=== PATIENT | female | born 1935 | race Caucasian/White ===

== ENCOUNTER 2017-10-15 11:53 | Inpatient (IN) ==
[2017-10-16 06:55] LABS: Baso % (Auto) 0.2 % (0.0-2.0); Eos # (Auto) 0.1 th/mm3 (0.0-0.4); Eos % (Auto) 0.9 % (0.0-4.0); Hematocrit 30.1 % (35.0-46.0); Lymph # (Auto) 0.4 th/mm3 (1.0-4.8); Lymph % (Auto) 3.6 % (9.0-44.0); Mean Corpuscular HGB Conc 33.1 % (32.0-36.0); Mean Corpuscular Hemoglobin 29.4 pg (27.0-34.0); Mean Platelet Volume 7.2 fL (7.0-11.0); Mono # (Auto) 0.8 th/mm3 (0.0-0.9); Mono % (Auto) 8.2 % (0.0-8.0); Neut # (Auto) 8.8 th/mm3 (1.8-7.7); Neut % (Auto) 87.1 % (16.0-70.0); Platelet Count 142 th/mm3 (150-450); Red Blood Count 3.38 mil/mm3 (4.00-5.30); White Blood Count 10.1 th/mm3 (4.0-11.0)
[2017-10-16 07:03] LABS: Chloride 108 meq/L (98-107); Potassium 3.8 meq/L (3.5-5.1); Sodium 137 meq/L (136-145)
[2017-10-16 07:21] LABS: Albumin 2.5 g/dL (3.4-5.0); Anion Gap 11 meq/L (5-15); Blood Urea Nitrogen 48 mg/dL (7-18); Calcium 8.9 mg/dL (8.5-10.1); Carbon Dioxide 18.5 meq/L (21.0-32.0); Glucose,Random 114 mg/dL (74-106)
[2017-10-16 07:24] LABS: Alanine Aminotransferase 311 U/L (10-53); Aspartate Aminotransferase 201 U/L (15-37); Glomerular Filtration Rate 36 mL/min (>89)
[2017-10-16 07:25] LABS: Total Protein 6.1 g/dL (6.4-8.2)
[2017-10-16 07:27] LABS: Alkaline Phosphatase 397 U/L (45-117)
[2017-10-16] MEDS ORDERED: Sod Chloride 0.9% Inj 1,000 ML IV.SIG ONE (10:12)
[2017-10-16] MEDS ORDERED: Atenolol 100 MG Tablet PO SCH (10:15)
--- NOTE | 2017-10-16 10:48 | P.HPIM ---
History of Present Illness Primary Care Physician: UNKNOWN Chief Complaint: Abdominal pain History of Present Illness: Patient is an 82-year-old female with a history of renal cell carcinoma status post left nephrectomy and adrenalectomy who comes in complaining of 5 days of intermittent abdominal pain with 2 days of worsening of the pain, anorexia and nausea. She notes no fevers or chills no rahul vomiting. She has come to the emergency room in [place] for further evaluation is noted to have elevated LFTs and gallstones without inflammation on her CT abdomen pelvis as well as her ultrasound. Patient was admitted for further evaluation hydration. Her pain has resolved with bowel rest, and it was severe but now it is minimal. He is localized only to the mid epigastrium and is nonradiating. - Diagnosis (1) Abdominal pain (2) Gall stones (3) Hepatitis Review of Systems All other systems reviewed negative except as stated in [facility]PI [facility] - History History Provided By: Patient, Family Member - Medical History Medical History: Medical History (Last Reviewed 10/16/17 @ 10:44 by Geraldine Lyman MD) High cholesterol History of nephrectomy, unilateral Hx of malignant neoplasm of kidney Hx of unilateral nephrectomy Hypertension Hypothyroid - Surgical History Surgical History: Surgical History (Last Updated 10/16/17 @ 10:45 by Geraldine Lyman MD) H/O total adrenalectomy History of nephrectomy Hx of tonsillectomy - Family History Family History: Family History (Last Updated 10/16/17 @ 10:44 by Geraldine Lyman MD) Other HTN (hypertension) - Tobacco History Second Hand Smoke Exposure: No Smoking Status: Never smoker - Alcohol History How Often Do You Have a Drink Containing Alcohol: Never - Substance Use History Substance History: No History of Abuse - Travel History Recent Travel in the [place] Within the Last 8 Weeks: No Recent Travel Out of the Country Within the Last 8 Weeks: No Medications and Allergies Active Medications: Active Medications Atenolol (Tenormin) 100 mg PO DAILY NIKO Lactated Ringer's (Lr 1000 Ml Inj) 1,000 mls @ 125 mls/hr IV.CONT .Q8H NIKO Levothyroxine Sodium (Synthroid) 25 mcg PO DAILY@0600 NIKO Ondansetron HCl (Zofran Inj) 4 mg IV.PUSH Q6H PRN PRN Reason: NAUSEA OR VOMITING Allergies Allergy/AdvReac Type Severity Reaction Status Date / Time NSAIDS (Non-Steroidal AdvReac Severe Abdominal Verified 10/15/17 12:17 Anti-Inflamma Pain Home Medications Medication Instructions Recorded Confirmed Type atenolol 100 mg PO DAILY 10/15/17 10/16/17 History levothyroxine 25 mcg PO DAILY 10/15/17 10/16/17 History simvastatin [Zocor] 40 mg PO QPM 10/15/17 10/16/17 History Exam Vital signs: Vital Signs 10/16/17 00:00 10/16/17 08:00 Temperature 99.6 F 100.2 F H Pulse Rate 74 92 H Respiratory Rate 16 17 Blood Pressure 126/58 L 134/65 Pulse Oximetry 97 94 L Intake & Output 10/15/17 10/16/17 10/16/17 18:59 06:59 18:59 Weight 81.7 kg Other: Date of Last Bowel Movement 10/15/17 Weight On Admission 81.7 kg Narrative: GENERAL: Well-nourished, well-developed patient. SKIN: Warm and dry. HEAD: Normocephalic. EYES: No scleral icterus. No injection or drainage. NECK: Supple, trachea midline. No JVD or lymphadenopathy. CARDIOVASCULAR: Regular rate and rhythm without murmurs, gallops, or rubs. RESPIRATORY: Breath sounds equal bilaterally. No accessory muscle use. GASTROINTESTINAL: Abdomen soft, minimally tender, nondistended. MUSCULOSKELETAL: No cyanosis, or edema. BACK: Nontender without obvious deformity. No CVA tenderness. NEUROLOGICAL: Awake and alert. Cranial nerves II through XII intact. Motor and sensory grossly within normal limits. Five out of 5 muscle strength in all muscle groups. Normal speech. Results - Labs CBC & Chem 7: 10/16/17 06:25 10/16/17 06:25 Labs: Short CBC 10/16/17 Range/Units 06:25 WBC 10.1 (4.0-11.0) th/mm3 Hgb 10.0 L (11.6-15.3) gm/dL Hct 30.1 L (35.0-46.0) % Plt Count 142 L (150-450) th/mm3 BMP 10/16/17 06:25 Sodium 137 Potassium 3.8 Chloride 108 H Carbon Dioxide 18.5 L BUN 48 H Creatinine 1.40 H Calcium 8.9 Liver Function 10/16/17 Range/Units 06:25 Total Bilirubin 2.3 H (0.2-1.0) mg/dL AST 201 H (15-37) U/L ALT 311 H (10-53) U/L Alkaline Phosphatase 397 H (45-117) U/L Albumin 2.5 L (3.4-5.0) g/dL - Imaging CT abdomen pelvis and ultrasound consistent with gallstones without acute cholecystitis Caprini VTE Risk Assessment Caprini VTE Risk Assessment: Moderate/High Risk (score >= 2) Caprini Risk Assessment Model: Point Value = 1 Point Value = 2 Point Value = 3 Point Value = 5 Age 41-60 Minor surgery BMI > 25 kg/m2 Swollen legs Varicose veins or History of unexplained or recurrent spontaneous Oral contraceptives or hormone replacement Sepsis (< 1 month) Serious lung disease, including pneumonia (< 1 month) Abnormal pulmonary function Acute myocardial infarction Congestive heart failure (< 1 month) History of inflammatory bowel disease Medical patient at bed rest Age 61-74 Arthroscopic surgery Major open surgery (> 45 min) Laparoscopic surgery (> 45 min) Malignancy Confined to bed (> 72 hours) Immobilizing plaster cast Central venous access Age >= 75 History of VTE Family history of VTE Factor V Leiden Prothrombin [id number] Lupus anticoagulant Anticardiolipin antibodies Elevated serum homocysteine Heparin-induced thrombocytopenia Other congenital or acquired thrombophilia Stroke (< 1 month) Elective arthroplasty Hip, pelvis, or leg fracture Acute spinal cord injury (< 1 month) Prophylaxis Regimen: Total Risk Factor Score Risk Level Prophylaxis Regimen 0-1 Low Early ambulation 2 Moderate Order ONE of the following: *Sequential Compression Device (SCD) *Heparin 5000 units SQ BID 3-4 Higher Order ONE of the following medications: *Heparin 5000 units SQ TID *Enoxaparin/Lovenox 40 mg SQ daily (WT < 150 kg, CrCl > 30 mL/min) *Enoxaparin/Lovenox 30 mg SQ daily (WT < 150 kg, CrCl > 10-29 mL/min) *Enoxaparin/Lovenox 30 mg SQ BID (WT < 150 kg, CrCl > 30 mL/min) AND/OR *Sequential Compression Device (SCD) 5 or more Highest Order ONE of the following medications: *Heparin 5000 units SQ TID (Preferred with Epidurals) *Enoxaparin/Lovenox 40 mg SQ daily (WT < 150 kg, CrCl > 30 mL/min) *Enoxaparin/Lovenox 30 mg SQ daily (WT < 150 kg, CrCl > 10-29 mL/min) *Enoxaparin/Lovenox 30 mg SQ BID (WT < 150 kg, CrCl > 30 mL/min) AND *Sequential Compression Device (SCD) Assessment and Plan - Assessment (1) Abdominal pain Code(s): R10.9 - Unspecified abdominal pain Status: Acute Plan: Likely due to gallstones Follow-up clinically N.p.o. for now (2) Gall stones Code(s): K80.20 - Calculus of gallbladder without cholecystitis without obstruction Status: Acute Plan: Patient with history of abdominal pain since her 20s. Gallstones noted on ultrasound and CT but without inflammatory changes Continue IV hydration and dietary changes Patient will need cholecystectomy at some point (3) Hepatitis Code(s): K75.9 - Inflammatory liver disease, unspecified Status: Acute Plan: May be due to gallstones, follow-up MRCP to rule out ductal stone Hepatitis panel pending Continue IV hydration - Plan Code Status: Full code Discharge Planning: Patient, ER MD, family H&P: Quality - VTE Deep Vein Thrombosis/Pulmonary Embolism Present on Admission: No
[2017-10-16 15:34] LABS: Hepatitis A IgM Antibody Nonreactive (Nonreactive); Hepatitits B Surface Antigen Nonreactive (Nonreactive)
--- NOTE | 2017-10-16 19:12 | P.CONGI ---
History of Present Illness Chief complaint: Acute hepatic insufficiency History of Present Illness: Came to see this patient consulted for abnormal liver panel possibly related to CBD stones. Patient is down in the radiology getting MRCP ordered by Dr. Lyman. Patient not interviewed or examined. Spoke to the nurse taking care of the patient. She reported patient had mild fever in the morning. She was however afebrile this afternoon.. Available medical records evaluated. There is history of abdominal pain ongoing for the last 5 days. She describes this as moderately severe pain located in the epigastrium and right upper quadrant without any specific radiation. There is no history of jaundice pruritus chills or rigor Review of Systems Gastrointestinal: Reports abdominal pain PMFSH - History History Provided By: Patient, Family Member - Medical History Medical History: Medical History (Last Reviewed 10/16/17 @ 10:44 by Geraldine Lyman MD) High cholesterol History of nephrectomy, unilateral Hx of malignant neoplasm of kidney Hx of unilateral nephrectomy Hypertension Hypothyroid - Surgical History Surgical History: Surgical History (Last Updated 10/16/17 @ 10:45 by Geraldine Lyman MD) H/O total adrenalectomy History of nephrectomy Hx of tonsillectomy - Family History Family History: Family History (Last Updated 10/16/17 @ 10:44 by Geraldine Lyman MD) Other HTN (hypertension) - Tobacco History Second Hand Smoke Exposure: No Smoking Status: Never smoker - Alcohol History How Often Do You Have a Drink Containing Alcohol: Never - Substance Use History Substance History: No History of Abuse - Travel History Recent Travel in the [place] Within the Last 8 Weeks: No Recent Travel Out of the Country Within the Last 8 Weeks: No Medications and Allergies Active Medications: Active Medications Atenolol (Tenormin) 100 mg PO DAILY [facility] Lactated Ringer's (Lr 1000 Ml Inj) 1,000 mls @ 125 mls/hr IV.CONT .Q8H [facility] Last Admin: 10/16/17 18:35 Dose: Not Given Levothyroxine Sodium (Synthroid) 25 mcg PO DAILY@0600 [facility] Last Admin: 10/16/17 12:04 Dose: 25 mcg Ondansetron HCl (Zofran Inj) 4 mg IV.PUSH Q6H PRN PRN Reason: NAUSEA OR VOMITING Allergies Allergy/AdvReac Type Severity Reaction Status Date / Time NSAIDS (Non-Steroidal AdvReac Severe Abdominal Verified 10/15/17 12:17 Anti-Inflamma Pain Home Medications Medication Instructions Recorded Confirmed Type atenolol 100 mg PO DAILY 10/15/17 10/16/17 History levothyroxine 25 mcg PO DAILY 10/15/17 10/16/17 History simvastatin [Zocor] 40 mg PO QPM 10/15/17 10/16/17 History Exam Vital signs: Vital Signs 10/16/17 00:00 10/16/17 08:00 10/16/17 12:00 Temperature 99.6 F 100.2 F H 96.8 F L Pulse Rate 74 92 H 73 Respiratory Rate 16 17 17 Blood Pressure 126/58 L 134/65 134/77 Pulse Oximetry 97 94 L 97 10/16/17 16:00 Temperature 98.6 F Pulse Rate 67 Respiratory Rate 16 Blood Pressure 117/68 Pulse Oximetry 98 Intake & Output 10/16/17 10/16/17 10/17/17 06:59 18:59 06:59 Intake Total 1000 / 1000 Balance 1000 / 1000 Weight 81.7 kg Intake: IV 1000 / 1000 NS Inj 1,000 ML @ Wide Open IV. 1000 / 1000 SIG BOLUS ONE Rx#:[id number] Oral 0 / 0 Other: # Voids 3 Date of Last Bowel Movement 10/15/17 # Bowel Movements 1 Weight On Admission 81.7 kg Narrative: Patient not examined as she was downstairs in the radiology getting MRCP Results - Labs CBC & Chem 7: 10/16/17 06:25 10/16/17 06:25 Labs: Laboratory Results - last 24 hr 10/16/17 10/16/17 10/16/17 06:25 06:25 11:10 CBC w Diff Auto diff final WBC 10.1 RBC 3.38 L Hgb 10.0 L Hct 30.1 L MCV 89.0 MCH 29.4 MCHC 33.1 RDW 13.0 Plt Count 142 L MPV 7.2 Neut % (Auto) 87.1 H Lymph % (Auto) 3.6 L [place] % (Auto) 8.2 H Eos % (Auto) 0.9 Baso % (Auto) 0.2 Neut # (Auto) 8.8 H Lymph # (Auto) 0.4 L [place] # (Auto) 0.8 Eos # (Auto) 0.1 Baso # (Auto) 0.0 WBC Differential . Differential Comment . Sodium 137 Potassium 3.8 Chloride 108 H Carbon Dioxide 18.5 L Anion Gap 11 BUN 48 H Creatinine 1.40 H Estimated GFR 36 L Random Glucose 114 H Calcium 8.9 Total Bilirubin 2.3 H AST 201 H ALT 311 H Alkaline Phosphatase 397 H Total Protein 6.1 L D Albumin 2.5 L Hepatitis A IgM Ab Nonreactive Hep Bs Antigen Nonreactive Hep B Core IgM Ab Nonreactive Hep C IgG Ab Nonreactive - Imaging CT scan and ultrasound showed presence of gallstones without any evidence of acute cholecystitis. Assessment and Plan (1) Abnormal liver function Status: Acute Code(s): K76.89 - Other specified diseases of liver (2) Abnormal liver CT Status: Acute Code(s): R93.2 - Abnormal findings on diagnostic imaging of liver and biliary tract (3) Abnormal liver enzymes Status: Acute Code(s): R74.8 - Abnormal levels of other serum enzymes (4) Abdominal pain Status: Acute Code(s): R10.9 - Unspecified abdominal pain (5) Gall stones Status: Acute Code(s): K80.20 - Calculus of gallbladder without cholecystitis without obstruction (6) Choledocholithiasis Status: Acute Code(s): K80.50 - Calculus of bile duct without cholangitis or cholecystitis without obstruction - Plan 1. Agree with MRCP to evaluate the possibility of CBD stone causing abnormal liver labs. 2. If MRCP shows choledocholithiasis, she would be schedule for ERCP and [facility] 3. Will follow up on the MRCP results tomorrow 4. Repeat labs in the a.m., CBC CMP PT/INR
--- NOTE | 2017-10-16 20:34 | MR ---
EXAM DATE: 10/16/2017 8:10 PM EDT AGE/SEX: 82 years / Female INDICATIONS: . Elevated LFTs. CLINICAL DATA: This is the patient's subsequent encounter. Patient reports that signs and symptoms h ave been present for 2 days and indicates a pain score of 0/10. MEDICAL/SURGICAL HISTORY: . cancer of the left kidney . removal of the left kidney and adrenal gland COMPARISON: [facility], CT ABDOMEN & PELVIS W/O CONTRAST, 10/15/2017. . TECHNIQUE: Multiplanar, multisequence images of the abdomen were obtained without contrast including dedicated cholangiographic images. FINDINGS: Postoperative left nephrectomy. There are 2 calcified gallstones present in the gallbladder. Common bile duct measures up to about 9 mm in diameter and there is choledocholithiasis with 2 gallst ones in the distal duct measuring about 8 mm in diameter and an additional 5 mm gallstone distally. T he pancreatic duct has normal caliber. There are numerous circumscribed renal cysts which are incompletely evaluated. No free fluid. No sign ificant abnormality identified spleen. No bowel dilatation. CONCLUSION: 1. Positive for choledocholithiasis with at least 3 gallstones in the distal common bile duct measur ing between 5 and 8 mm in diameter. Common bile duct measures up to about 9 mm in diameter. 2. Calcified gallstones in the gallbladder. Electronically signed by: Reginald Montgomery MD 10/16/2017 8:32 PM EDT
[2017-10-17 06:33] LABS: Hematocrit 28.5 % (35.0-46.0); Hemoglobin 9.4 gm/dL (11.6-15.3); Mean Corpuscular Hemoglobin 29.5 pg (27.0-34.0); Mean Corpuscular Volume 89.4 fL (80.0-100.0); Mean Platelet Volume 7.7 fL (7.0-11.0); Platelet Count 141 th/mm3 (150-450); Red Blood Count 3.18 mil/mm3 (4.00-5.30); Red Cell Distribution Width 13.3 % (11.6-17.2); White Blood Count 9.8 th/mm3 (4.0-11.0)
[2017-10-17 06:40] LABS: Chloride 111 meq/L (98-107); Sodium 140 meq/L (136-145)
[2017-10-17 06:47] LABS: Calcium 8.8 mg/dL (8.5-10.1); INR 1.2 Ratio; Prothrombin Time 11.8 sec (9.8-11.6)
[2017-10-17 06:48] LABS: Albumin 2.2 g/dL (3.4-5.0); Anion Gap 9 meq/L (5-15); Blood Urea Nitrogen 52 mg/dL (7-18); Glucose,Random 97 mg/dL (74-106)
[2017-10-17 06:51] LABS: Alanine Aminotransferase 185 U/L (10-53); Aspartate Aminotransferase 59 U/L (15-37); Glomerular Filtration Rate 39 mL/min (>89)
[2017-10-17 06:52] LABS: Total Protein 5.7 g/dL (6.4-8.2)
[2017-10-17 06:54] LABS: Alkaline Phosphatase 304 U/L (45-117)
--- NOTE | 2017-10-17 07:09 | P.PN ---
Subjective Interval history: 82-year-old female who is seen in follow-up today because of elevated liver enzymes, choledocholithiasis. Patient is resting comfortably in bed. Presently she is without any pain or discomfort. Discussed with her that the treatment plan for ERCP. She is in agreement at this time. Vital signs are stable, patient remains afebrile Physical Exam Vital signs: Vital Signs 10/16/17 08:00 10/16/17 12:00 10/16/17 16:00 Temperature 100.2 F H 96.8 F L 98.6 F Pulse Rate 92 H 73 67 Respiratory Rate 17 17 16 Blood Pressure 134/65 134/77 117/68 Pulse Oximetry 94 L 97 98 10/16/17 20:00 10/17/17 00:00 Temperature 98.3 F 98.4 F Pulse Rate 72 69 Respiratory Rate 20 20 Blood Pressure 155/80 H 126/62 Pulse Oximetry 100 97 Intake & Output 10/16/17 10/17/17 10/17/17 18:59 06:59 18:59 Intake Total 1000 / 1000 1560 / 1560 Balance 1000 / 1000 1560 / 1560 Weight 82.3 kg Intake: IV 1000 / 1000 1500 / 1500 LR 1000 mL Inj 1,000 ML @ 125 1500 / 1500 mls/hr IV.CONT .Q8H NIKO Rx#: [id number] NS Inj 1,000 ML @ Wide Open IV. 1000 / 1000 SIG BOLUS ONE Rx#:[id number] Oral 0 / 0 60 / 60 Other: # Voids 3 1 Date of Last Bowel Movement 10/15/17 # Bowel Movements 1 Narrative: GENERAL: Well-developed, well-nourished, in no acute distress. alert and orientated HEENT: Head is normocephalic without any lesions or masses noted. Facial features are symmetric. Eyes: Extraocular muscles are intact. Conjunctivae were clear. NECK: Supple without any masses. Trachea midline no deviation. No JVD, CARDIAC: Regular rhythm, regular rate. S1/S2 are heard. 2/6 ejection murmur noted in the mitral region. No gallops or rubs. LUNGS: Clear to auscultation bilaterally. No wheeze, rhonchi or rales. No use of accessory muscles on inspiration or expiration. ABDOMEN: Soft, nontender. Nondistended. Bowel sounds heard in all 4 quadrants. No organomegaly or masses. Negative rebound, negative guarding EXTREMITIES: No edema, pulses are equal bilaterally. No cyanosis or clubbing NEUROLOGY: Mood and affect appear appropriate. Cranial nerves II through XII grossly intact. Moving all extremities, speech is clear Results - Labs CBC & Chem 7: 10/17/17 05:18 10/17/17 05:18 Laboratory Results - last 24 hr 10/16/17 10/16/17 10/17/17 06:25 11:10 05:18 WBC RBC Hgb Hct MCV MCH MCHC RDW Plt Count MPV PT INR Sodium 137 140 Potassium 3.8 4.0 Chloride 108 H 111 H Carbon Dioxide 18.5 L 20.0 L Anion Gap 11 9 BUN 48 H 52 H Creatinine 1.40 H 1.30 H Estimated GFR 36 L 39 L Random Glucose 114 H 97 Calcium 8.9 8.8 Total Bilirubin 2.3 H 0.8 AST 201 H 59 H ALT 311 H 185 H Alkaline Phosphatase 397 H 304 H Total Protein 6.1 L D 5.7 L Albumin 2.5 L 2.2 L Hepatitis A IgM Ab Nonreactive Hep Bs Antigen Nonreactive Hep B Core IgM Ab Nonreactive Hep C IgG Ab Nonreactive 10/17/17 10/17/17 05:18 05:18 WBC 9.8 RBC 3.18 L Hgb 9.4 L Hct 28.5 L MCV 89.4 MCH 29.5 MCHC 33.0 RDW 13.3 Plt Count 141 L MPV 7.7 PT 11.8 H INR 1.2 Sodium Potassium Chloride Carbon Dioxide Anion Gap BUN Creatinine Estimated GFR Random Glucose Calcium Total Bilirubin AST ALT Alkaline Phosphatase Total Protein Albumin Hepatitis A IgM Ab Hep Bs Antigen Hep B Core IgM Ab Hep C IgG Ab - Imaging Impressions Cholangiopancreatography MRI 10/16/17 00:00 CONCLUSION: 1. Positive for choledocholithiasis with at least 3 gallstones in the distal common bile duct measuring between 5 and 8 mm in diameter. Common bile duct measures up to about 9 mm in diameter. 2. Calcified gallstones in the gallbladder. Assessment and Plan - Assessment (1) Abdominal pain Code(s): R10.9 - Unspecified abdominal pain Status: Acute Plan: Likely due to gallstones Follow-up clinically N.p.o. for now (2) Gall stones Code(s): K80.20 - Calculus of gallbladder without cholecystitis without obstruction Status: Acute Plan: Patient with history of abdominal pain since her 20s. Gallstones noted on ultrasound and CT but without inflammatory changes Continue IV hydration and dietary changes Patient will need cholecystectomy at some point (3) Hepatitis Code(s): K75.9 - Inflammatory liver disease, unspecified Status: Acute Plan: May be due to gallstones, follow-up MRCP to rule out ductal stone Hepatitis panel pending Continue IV hydration - Plan 82-year-old female who presented to the hospital with abdominal pain and was found to have elevated liver enzymes, gallbladder distention Choledocholithiasis -MRCP does indicate at least 3 stones obstructing the distal common bile duct -Patient will require ERCP, patient will be transferred to the [facility] for procedure -CT scan did indicate:. The gallbladder is mildly distended, and there are 2 calcified stones in the dependent portion of the gallbladder. -GI following the patient, discussed with Dr. Santana, plans to transfer for ERCP today -Continue IV hydration with lactated Ringer's -Patient will be n.p.o. Elevated liver enzymes -Secondary to above -Viral hepatitis panel was unremarkable -GI following the patient -Continue monitor liver enzymes Hypertension, hyperlipidemia, chronic: -Blood pressure stable -Home medication continued -Statin has been held secondary to elevated liver enzyme Hypothyroidism, chronic: -Continue replacement therapy History of kidney cancer status post nephrectomy -CT scan did indicate2. Multiple right-sided renal masses occluding probable hemorrhagic or proteinaceous cysts, complex cysts and indeterminate possibly solid masses. Contrast-enhanced CT abdomen or MRI abdomen with and without contrast suggested on a nonemergent outpatient basis. -Patient will need follow up with primary medical doctor upon discharge for further evaluation and management DVT prevention -Sequential compression devices
[2017-10-17] MEDS: Atenolol 50 MG Tablet PO SCH (09:20)
--- NOTE | 2017-10-17 11:21 | P.PNGI ---
Subjective Interval history: Pt resting in bed, arrived from [place] about an hour ago. Complaining of some intermittent pain to her LUQ. Denies any nausea and vomiting. <Sharona Rojas - Last Filed: 10/17/17 11:22> Physical Exam Vital signs: Vital Signs 10/16/17 12:00 10/16/17 16:00 10/16/17 20:00 Temperature 96.8 F L 98.6 F 98.3 F Pulse Rate 73 67 72 Respiratory Rate 17 16 20 Blood Pressure 134/77 117/68 155/80 H Pulse Oximetry 97 98 100 10/17/17 00:00 10/17/17 08:34 10/17/17 10:42 Temperature 98.4 F 99.4 F 98.1 F Pulse Rate 69 67 68 Respiratory Rate 20 18 16 Blood Pressure 126/62 150/72 H 155/70 H Pulse Oximetry 97 96 100 Intake & Output 10/16/17 10/17/17 10/17/17 18:59 06:59 18:59 Intake Total 1000 / 1000 1560 / 1560 Balance 1000 / 1000 1560 / 1560 Weight 82.3 kg Intake: IV 1000 / 1000 1500 / 1500 LR 1000 mL Inj 1,000 ML @ 125 1500 / 1500 mls/hr IV.CONT .Q8H NIKO Rx#: [id number] NS Inj 1,000 ML @ Wide Open IV. 1000 / 1000 SIG BOLUS ONE Rx#:[id number] Oral 0 / 0 60 / 60 Other: # Voids 3 1 Date of Last Bowel Movement 10/15/17 10/16/17 # Bowel Movements 1 - Constitutional no acute distress - Routine HEENT Exam Head: Present: normocephalic, atraumatic - Routine Respiratory Exam Absent: accessory muscle use - Routine Abdominal Exam Present: soft, normoactive bowel sounds, tenderness (LuQ) - Routine Skin Exam Present: dry, warm - Routine Neurological Exam Present: alert, oriented X3 <Sharona Rojas - Last Filed: 10/17/17 11:22> Vital signs: Vital Signs 10/16/17 20:00 10/17/17 00:00 10/17/17 08:34 Temperature 98.3 F 98.4 F 99.4 F Pulse Rate 72 69 67 Respiratory Rate 20 20 18 Blood Pressure 155/80 H 126/62 150/72 H Pulse Oximetry 100 97 96 08/02/18 10:42 10/17/17 14:01 10/17/17 16:00 Temperature 98.1 F 97.9 F 98.2 F Pulse Rate 68 64 60 Respiratory Rate 16 16 14 Blood Pressure 155/70 H 137/60 148/67 H Pulse Oximetry 100 99 97 Intake & Output 10/16/17 10/17/17 10/17/17 18:59 06:59 18:59 Intake Total 1000 / 1000 1560 / 1560 900 / 900 Balance 1000 / 1000 1560 / 1560 900 / 900 Weight 82.3 kg 82.3 kg Intake: IV 1000 / 1000 1500 / 1500 500 / 500 LR 1000 mL Inj 1,000 ML @ 125 1500 / 1500 500 / 500 mls/hr IV.CONT .Q8H NIKO Rx#: [id number] NS Inj 1,000 ML @ Wide Open IV. 1000 / 1000 SIG BOLUS ONE Rx#:[id number] Oral 0 / 0 60 / 60 Anesthesia Amount 400 / 400 Other: # Voids 3 1 Date of Last Bowel Movement 10/15/17 10/16/17 # Bowel Movements 1 <Nils Santana - Last Filed: 10/17/17 17:02> Results - Labs CBC & Chem 7: 10/17/17 05:18 10/17/17 05:18 Laboratory Results - last 24 hr 10/16/17 10/17/17 10/17/17 11:10 05:18 05:18 WBC 9.8 RBC 3.18 L Hgb 9.4 L Hct 28.5 L MCV 89.4 MCH 29.5 MCHC 33.0 RDW 13.3 Plt Count 141 L MPV 7.7 PT INR Sodium 140 Potassium 4.0 Chloride 111 H Carbon Dioxide 20.0 L Anion Gap 9 BUN 52 H Creatinine 1.30 H Estimated GFR 39 L Random Glucose 97 Calcium 8.8 Total Bilirubin 0.8 AST 59 H ALT 185 H Alkaline Phosphatase 304 H Total Protein 5.7 L Albumin 2.2 L Hepatitis A IgM Ab Nonreactive Hep Bs Antigen Nonreactive Hep B Core IgM Ab Nonreactive Hep C IgG Ab Nonreactive 10/17/17 05:18 WBC RBC Hgb Hct MCV MCH MCHC RDW Plt Count MPV PT 11.8 H INR 1.2 Sodium Potassium Chloride Carbon Dioxide Anion Gap BUN Creatinine Estimated GFR Random Glucose Calcium Total Bilirubin AST ALT Alkaline Phosphatase Total Protein Albumin Hepatitis A IgM Ab Hep Bs Antigen Hep B Core IgM Ab Hep C IgG Ab - Imaging Impressions Cholangiopancreatography MRI 10/16/17 00:00 CONCLUSION: 1. Positive for choledocholithiasis with at least 3 gallstones in the distal common bile duct measuring between 5 and 8 mm in diameter. Common bile duct measures up to about 9 mm in diameter. 2. Calcified gallstones in the gallbladder. <Sharona Rojas - Last Filed: 10/17/17 11:22> - Labs CBC & Chem 7: 10/17/17 05:18 10/17/17 05:18 Laboratory Results - last 24 hr 10/17/17 10/17/17 10/17/17 05:18 05:18 05:18 WBC 9.8 RBC 3.18 L Hgb 9.4 L Hct 28.5 L MCV 89.4 MCH 29.5 MCHC 33.0 RDW 13.3 Plt Count 141 L MPV 7.7 PT 11.8 H INR 1.2 Sodium 140 Potassium 4.0 Chloride 111 H Carbon Dioxide 20.0 L Anion Gap 9 BUN 52 H Creatinine 1.30 H Estimated GFR 39 L Random Glucose 97 Calcium 8.8 Total Bilirubin 0.8 AST 59 H ALT 185 H Alkaline Phosphatase 304 H Total Protein 5.7 L Albumin 2.2 L - Imaging Impressions Cholangiopancreatography MRI 10/16/17 00:00 CONCLUSION: 1. Positive for choledocholithiasis with at least 3 gallstones in the distal common bile duct measuring between 5 and 8 mm in diameter. Common bile duct measures up to about 9 mm in diameter. 2. Calcified gallstones in the gallbladder. <Nils Santana - Last Filed: 10/17/17 17:02> Assessment and Plan - Plan Assessment: - Choledocholithiasis with elevated LFTs (10/16) AST-201 ALT-311 Alk phos-397 T bili-2.3 Pt presented with intermittent LUQ abdominal pain, anorexia and nausea. S/P MRCP which revealed Positive for choledocholithiasis with at least 3 gallstones in the distal CBD measuring between 5 and 8 mm in diameter. CBD measures up to about 9 mm in diameter. Calcified gallstones in the gallbladder. Pt denies previous EGD Denies previous gastric bypass Plan: ERCP today Obtain consent Keep NPO Monitor LFTs GS consult Further recommendations to follow Pt has been seen and examined by myself and Dr. Santana and this note is written on his behalf <Sharona Rojas - Last Filed: 10/17/17 11:22> - Plan Seen and examined with [facility], transferred from [facility] for ERCP secondary to cholidocholithiasis. ERCP planned for today. NPO with ivf. Monitor labs. - Attending Attestation The exam, history, and the medical decision-making described in the above note were completed with the assistance of the mid-level provider. I reviewed and agree with the findings presented. I attest that I had a [id number] encounter with the patient on the same day, and personally performed and documented my assessment and findings in the medical record. <Nils Santana - Last Filed: 10/17/17 17:02>
[2017-10-17] MEDS ORDERED: Lidocaine PF 1% Inj 5 ML Syringe INFILTRATN ONE (12:00)
[2017-10-17] MEDS ORDERED: Metoprolol Tartrate 25 MG Tablet PO SCH (12:30)
[2017-10-17] MEDS ORDERED: Chlorhexidine Gluconate 2% 1 Pack (2 Cloths) TOPICAL SCH (12:30)
[2017-10-17] MEDS ORDERED: Sodium Chlor 0.9% Inj 500 ML IV.SIG SCH (13:00)
--- NOTE | 2017-10-17 14:02 | GIPROC ---
[facility] [address] [facility]. [facility], [address] ERCP PROCEDURE REPORT EXAM DATE: 10/17/2017 PATIENT NAME: Amanda Iglesias MR #: [id number] BIRTHDATE: 1935 ATTENDING: Nils Santana MD ORDER #: [id number] AD OPERATIONS INTERN: Kirti Paula RN STATUS: inpatient INDICATIONS: The patient is a 82 yr old female here for an ERCP due to established bile duct stone(s) and abdominal pain of suspected biliary origin PROCEDURE PERFORMED: ERCP with sphincterotomy/papillotomy ERCP with removal of calculus/calculi MEDICATIONS: None and Per Anesthesia. CONSENT: The patient understands the risks and benefits of the procedure and understands that these risks include, but are not limited to: sedation, allergic reaction, infection, perforation and/or bleeding. Alternative means of evaluation and treatment include, among others: physical exam, x-rays, and/or surgical intervention. The patient elects to proceed with this endoscopic procedure. medical equipment was checked for proper function. Hand hygiene and appropriate measures for infection prevention was taken. After the risks, benefits and alternatives of the procedure were thoroughly explained, Informed was verified, confirmed and timeout was successfully executed by the treatment team. With the patient in left semi-prone position, medications were administered intravenously.The Pentax [id number] was passed from the mouth into the esophagus and further advanced from the esophagus into the stomach. From stomach scope was directed to the second portion of the duodenum. Major papilla was aligned with the duodenoscope. The scope position was confirmed fluoroscopically. Rest of the findings/therapeutics are given below. The scope was then completely withdrawn from the patient and the procedure completed. The pulse, BP, and O2 saturation were monitored and documented by the physician and the nursing staff throughout the entire procedure. The patient was cared for as planned according to standard protocol. The patient was then discharged to recovery in stable condition and with appropriate post procedure care. The ampulla was located the second portion of the duodenum. 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 There was a medium sized periampullary diverticulum. Three stones were seen in the common bile duct. 3 STONES IN cbd, SPHINCTEROTOMY 7MM, Balloon sweep with 11.5 balloon, three stones and debris removed. Dilated distal CBD. ADVERSE EVENT: There were no complications. IMPRESSIONS: 1. 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 Medium periampullary diverticulum 3. 3 STONES IN cbd, SPHINCTEROTOMY 7MM, Balloon sweep with 11.5 balloon, three stones and debris removed. Dilated distal CBD RECOMMENDATIONS: 1. Liver enzymes 2. Follow-up: GI clinic 2 week(s) REPEAT EXAM: Return as needed for ERCP Nils Santana MD eSigned: Nils Santana MD 10/17/2017 2:02 PM cc: PATIENT NAME: Amanda Iglesias MR#: [id number]
--- NOTE | 2017-10-17 16:53 | P.CONGS ---
[facility] Surgery Consult Note Consult date: 10/17/17 Reason for consult: gallstones Requesting physician: Sharona Rojas Narrative: This is an 82-year-old female with a past medical history of renal cell carcinoma and left nephrectomy who presented to the [place] ED with complaints of severe abdominal pain for about 5 hours. Patient states she had a similar type episode about 20 years ago but did not have any sort of workup on it. She denies any fevers. She denies any nausea or vomiting. A CT abdomen pelvis was obtained which shows cholelithiasis. A gallbladder ultrasound was obtained which also shows cholelithiasis. The patient's liver enzymes were elevated. An MRCP was obtained which shows choledocholithiasis. The patient had a ERCP done today on 3 stones were removed from the common bile duct. A General Surgery consultation has been requested for evaluation of laparoscopic cholecystectomy. <Amparo Pantoja - Last Filed: 10/17/17 16:54> Narrative: CONSULTATION NOTE FOR SURGICAL ATTENDING, DR. REGINALD EASTMAN <Reginald Eastman - Last Filed: 10/17/17 19:48> Review of Systems Constitutional: Denies body ache(s), Denies fever(s) Eyes: Denies dry eyes Ears, Nose, Mouth, and Throat: Denies headache(s) Cardiovascular: Denies chest pain, Denies chest pain at rest, Denies chest pain with activity Respiratory: Denies chest congestion, Denies cough Gastrointestinal: Reports abdominal pain, Denies nausea, Denies vomiting Genitourinary: Denies pelvic pain Musculoskeletal: Denies abnormal walking Skin/Breast: Denies dry skin, Denies lesions Neurologic: Denies frequent falls Psychiatric: Denies anxiety, Denies depression Endocrine: Denies cold intolerance, Denies heat intolerance Hematologic/Lymphatic: Denies easy bleeding Allergic/Immunologic: Denies tongue swelling <Amparo Pantoja - Last Filed: 10/17/17 16:54> PMFSH - History History Provided By: Patient, Family Member - Medical History Medical History: Medical History (Last Reviewed 10/16/17 @ 10:44 by Geraldine Lyman MD) High cholesterol History of nephrectomy, unilateral Hx of malignant neoplasm of kidney Hx of unilateral nephrectomy Hypertension Hypothyroid - Surgical History Surgical History: Surgical History (Last Updated 10/16/17 @ 10:45 by Geraldine Lyman MD) H/O total adrenalectomy History of nephrectomy Hx of tonsillectomy - Family History Family History: Family History (Last Updated 10/16/17 @ 10:44 by Geraldine Lyman MD) Other HTN (hypertension) - Tobacco History Second Hand Smoke Exposure: No Tobacco Use In Past 30 Days: No Smoking Status: Never smoker Tobacco Type: Cigarettes - Alcohol History How Often Do You Have a Drink Containing Alcohol: Never - Substance Use History Substance History: No History of Abuse - Travel History Recent Travel in the [facility] [place] Within the Last 8 Weeks: No Recent Travel Out of the Country Within the Last 8 Weeks: No <Amparo Pantoja - Last Filed: 10/17/17 16:54> - Medical History Medical History: Medical History (Last Reviewed 10/16/17 @ 10:44 by Geraldine Lyman MD) High cholesterol History of nephrectomy, unilateral Hx of malignant neoplasm of kidney Hx of unilateral nephrectomy Hypertension Hypothyroid - Surgical History Surgical History: Surgical History (Last Updated 10/16/17 @ 10:45 by Geraldine Lyman MD) H/O total adrenalectomy History of nephrectomy Hx of tonsillectomy - Family History Family History: Family History (Last Updated 10/16/17 @ 10:44 by Geraldine Lyman MD) Other HTN (hypertension) <Reginald Eastman - Last Filed: 10/17/17 19:48> Medications and Allergies Active Medications: Active Medications Atenolol (Tenormin) 100 mg PO DAILY [facility] Last Admin: 10/17/17 09:20 Dose: 100 mg Chlorhexidine Gluconate (Chlorhexidine 2% Cloth) 3 pack [employer] [facility] Stop: 10/20/17 12:29 Lactated Ringer's (Lr 1000 Ml Inj) 1,000 mls @ 125 mls/hr IV.CONT .Q8H [facility] Last Infusion: 10/17/17 15:24 Dose: Infused Lactated Ringer's (Lr 1000 Ml Inj) 1,000 mls @ 30 mls/hr IV.SIG .Q24H [facility] Stop: 10/20/17 12:29 Sodium Chloride (Ns Inj) 500 mls @ 30 mls/hr IV.SIG .Q10H [facility] Stop: 10/20/17 12:29 Levothyroxine Sodium (Synthroid) 25 mcg PO DAILY@0600 [facility] Last Admin: 10/17/17 05:39 Dose: 25 mcg Ondansetron HCl (Zofran Inj) 4 mg IV.PUSH Q6H PRN PRN Reason: NAUSEA OR VOMITING Povidone Iodine (Betadine 5% Antisepsis Kit) 1 applicatio EACH [employer] [facility] Stop: 10/20/17 12:29 <Amparo Pantoja - Last Filed: 10/17/17 16:54> Active Medications: Active Medications Atenolol (Tenormin) 100 mg PO DAILY [facility] [place] Last Admin: 10/17/17 09:20 Dose: 100 mg Chlorhexidine Gluconate (Chlorhexidine 2% Cloth) 3 pack [employer] [facility] [place] Stop: 10/20/17 12:29 Lactated Ringer's (Lr 1000 Ml Inj) 1,000 mls @ 125 mls/hr IV.CONT .Q8H [facility] Last Infusion: 10/17/17 15:24 Dose: Infused Lactated Ringer's (Lr 1000 Ml Inj) 1,000 mls @ 30 mls/hr IV.SIG .Q24H [facility] Stop: 10/20/17 12:29 Sodium Chloride (Ns Inj) 500 mls @ 30 mls/hr IV.SIG .Q10H [facility] Stop: 10/20/17 12:29 Levothyroxine Sodium (Synthroid) 25 mcg PO DAILY@0600 [facility] Last Admin: 10/17/17 05:39 Dose: 25 mcg Ondansetron HCl (Zofran Inj) 4 mg IV.PUSH Q6H PRN PRN Reason: NAUSEA OR VOMITING Povidone Iodine (Betadine 5% Antisepsis Kit) 1 applicatio EACH [employer]ENT [facility] Stop: 10/20/17 12:29 <Reginald Eastman - Last Filed: 10/17/17 19:48> Allergies Allergy/AdvReac Type Severity Reaction Status Date / Time NSAIDS (Non-Steroidal AdvReac Severe Abdominal Verified 10/15/17 12:17 Anti-Inflamma Pain Home Medications Medication Instructions Recorded Confirmed Type atenolol 100 mg PO DAILY 10/15/17 10/16/17 History levothyroxine 25 mcg PO DAILY 10/15/17 10/16/17 History simvastatin [Zocor] 40 mg PO QPM 10/15/17 10/16/17 History Exam Vital signs: Vital Signs 10/16/17 20:00 10/17/17 00:00 10/17/17 08:34 Temperature 98.3 F 98.4 F 99.4 F Pulse Rate 72 69 67 Respiratory Rate 20 20 18 Blood Pressure 155/80 H 126/62 150/72 H Pulse Oximetry 100 97 96 10/17/17 10:42 10/17/17 14:01 10/17/17 16:00 Temperature 98.1 F 97.9 F 98.2 F Pulse Rate 68 64 60 Respiratory Rate 16 16 14 Blood Pressure 155/70 H 137/60 148/67 H Pulse Oximetry 100 99 97 Intake & Output 10/16/17 10/17/17 10/17/17 18:59 06:59 18:59 Intake Total 1000 / 1000 1560 / 1560 900 / 900 Balance 1000 / 1000 1560 / 1560 900 / 900 Weight 82.3 kg 82.3 kg Intake: IV 1000 / 1000 1500 / 1500 500 / 500 LR 1000 mL Inj 1,000 ML @ 125 1500 / 1500 500 / 500 mls/hr IV.CONT .Q8H [facility] Rx#: [id number] NS Inj 1,000 ML @ Wide Open IV. 1000 / 1000 SIG BOLUS ONE Rx#:[id number] Oral 0 / 0 60 / 60 Anesthesia Amount 400 / 400 Other: # Voids 3 1 Date of Last Bowel Movement 10/15/17 10/16/17 # Bowel Movements 1 Narrative: GENERAL: Very pleasant 82 year old female resting in bed in no acute distress. SKIN: Warm and dry. HEAD: Atraumatic. Normocephalic. EYES: Pupils equal and round. No scleral icterus. No injection or drainage. ENT: No nasal bleeding or discharge. Mucous membranes pink and moist. NECK: Trachea midline. CARDIOVASCULAR: Regular rate and rhythm. RESPIRATORY: No accessory muscle use. Clear to auscultation. Breath sounds equal bilaterally. GASTROINTESTINAL: Abdomen soft, non-tender, nondistended. MUSCULOSKELETAL: Extremities without clubbing, cyanosis, or edema. No obvious deformities. NEUROLOGICAL: Awake and alert. No obvious cranial nerve deficits. Motor grossly within normal limits. Five out of 5 muscle strength in the arms and legs. Normal speech. PSYCHIATRIC: Appropriate mood and affect; insight and judgment normal. <Amparo Pantoja - Last Filed: 10/17/17 16:54> Vital signs: Vital Signs 10/16/17 20:00 10/17/17 00:00 10/17/17 08:34 Temperature 98.3 F 98.4 F 99.4 F Pulse Rate 72 69 67 Respiratory Rate 20 20 18 Blood Pressure 155/80 H 126/62 150/72 H Pulse Oximetry 100 97 96 10/17/17 10:42 10/17/17 14:01 10/17/17 16:00 Temperature 98.1 F 97.9 F 98.2 F Pulse Rate 68 64 60 Respiratory Rate 16 16 14 Blood Pressure 155/70 H 137/60 148/67 H Pulse Oximetry 100 99 97 Intake & Output 10/17/17 10/17/17 10/18/17 06:59 18:59 06:59 Intake Total 1560 / 1560 900 / 900 Balance 1560 / 1560 900 / 900 Weight 82.3 kg 82.3 kg Intake: IV 1500 / 1500 500 / 500 LR 1000 mL Inj 1,000 ML @ 125 1500 / 1500 500 / 500 mls/hr IV.CONT .Q8H [facility] Rx#: [id number] Oral 60 / 60 Anesthesia Amount 400 / 400 Other: # Voids 1 Date of Last Bowel Movement 10/15/17 10/16/17 <Reginald Eastman - Last Filed: 10/17/17 19:48> Results - Labs 10/17/17 05:18 10/17/17 05:18 Abnormal lab results 10/17/17 10/17/17 10/17/17 Range/Units 05:18 05:18 05:18 RBC 3.18 L (4.00-5.30) mil/mm3 Hgb 9.4 L (11.6-15.3) gm/dL Hct 28.5 L (35.0-46.0) % Plt Count 141 L (150-450) th/mm3 PT 11.8 H (9.8-11.6) sec Chloride 111 H (98-107) meq/L Carbon Dioxide 20.0 L (21.0-32.0) meq/L BUN 52 H (7-18) mg/dL Creatinine 1.30 H (0.50-1.00) mg/dL Estimated GFR 39 L (>89) mL/min AST 59 H (15-37) U/L ALT 185 H (10-53) U/L Alkaline Phosphatase 304 H (45-117) U/L Total Protein 5.7 L (6.4-8.2) g/dL Albumin 2.2 L (3.4-5.0) g/dL Diabetes panel 10/17/17 Range/Units 05:18 Sodium 140 (136-145) meq/L Potassium 4.0 (3.5-5.1) meq/L Chloride 111 H (98-107) meq/L Carbon Dioxide 20.0 L (21.0-32.0) meq/L BUN 52 H (7-18) mg/dL Creatinine 1.30 H (0.50-1.00) mg/dL Calcium 8.8 (8.5-10.1) mg/dL AST 59 H (15-37) U/L ALT 185 H (10-53) U/L Alkaline Phosphatase 304 H (45-117) U/L Total Protein 5.7 L (6.4-8.2) g/dL Albumin 2.2 L (3.4-5.0) g/dL Calcium panel 10/17/17 Range/Units 05:18 Calcium 8.8 (8.5-10.1) mg/dL Albumin 2.2 L (3.4-5.0) g/dL Pituitary panel 10/17/17 Range/Units 05:18 Sodium 140 (136-145) meq/L Potassium 4.0 (3.5-5.1) meq/L Chloride 111 H (98-107) meq/L Carbon Dioxide 20.0 L (21.0-32.0) meq/L BUN 52 H (7-18) mg/dL Creatinine 1.30 H (0.50-1.00) mg/dL Calcium 8.8 (8.5-10.1) mg/dL Adrenal panel 10/17/17 Range/Units 05:18 Sodium 140 (136-145) meq/L Potassium 4.0 (3.5-5.1) meq/L Chloride 111 H (98-107) meq/L Carbon Dioxide 20.0 L (21.0-32.0) meq/L BUN 52 H (7-18) mg/dL Creatinine 1.30 H (0.50-1.00) mg/dL Calcium 8.8 (8.5-10.1) mg/dL Total Bilirubin 0.8 (0.2-1.0) mg/dL AST 59 H (15-37) U/L ALT 185 H (10-53) U/L Alkaline Phosphatase 304 H (45-117) U/L Total Protein 5.7 L (6.4-8.2) g/dL Albumin 2.2 L (3.4-5.0) g/dL All other labs normal. - Imaging CT scan - abdomen: report reviewed US - abdomen: report reviewed Additional studies: MRCP <Amparo Pantoja - Last Filed: 10/17/17 16:54> - Labs 10/17/17 05:18 10/17/17 05:18 Abnormal lab results 10/17/17 10/17/17 10/17/17 Range/Units 05:18 05:18 05:18 RBC 3.18 L (4.00-5.30) mil/mm3 Hgb 9.4 L (11.6-15.3) gm/dL Hct 28.5 L (35.0-46.0) % Plt Count 141 L (150-450) th/mm3 PT 11.8 H (9.8-11.6) sec Chloride 111 H (98-107) meq/L Carbon Dioxide 20.0 L (21.0-32.0) meq/L BUN 52 H (7-18) mg/dL Creatinine 1.30 H (0.50-1.00) mg/dL Estimated GFR 39 L (>89) mL/min AST 59 H (15-37) U/L ALT 185 H (10-53) U/L Alkaline Phosphatase 304 H (45-117) U/L Total Protein 5.7 L (6.4-8.2) g/dL Albumin 2.2 L (3.4-5.0) g/dL Diabetes panel 10/17/17 Range/Units 05:18 Sodium 140 (136-145) meq/L Potassium 4.0 (3.5-5.1) meq/L Chloride 111 H (98-107) meq/L Carbon Dioxide 20.0 L (21.0-32.0) meq/L BUN 52 H (7-18) mg/dL Creatinine 1.30 H (0.50-1.00) mg/dL Calcium 8.8 (8.5-10.1) mg/dL AST 59 H (15-37) U/L ALT 185 H (10-53) U/L Alkaline Phosphatase 304 H (45-117) U/L Total Protein 5.7 L (6.4-8.2) g/dL Albumin 2.2 L (3.4-5.0) g/dL Calcium panel 10/17/17 Range/Units 05:18 Calcium 8.8 (8.5-10.1) mg/dL Albumin 2.2 L (3.4-5.0) g/dL Pituitary panel 10/17/17 Range/Units 05:18 Sodium 140 (136-145) meq/L Potassium 4.0 (3.5-5.1) meq/L Chloride 111 H (98-107) meq/L Carbon Dioxide 20.0 L (21.0-32.0) meq/L BUN 52 H (7-18) mg/dL Creatinine 1.30 H (0.50-1.00) mg/dL Calcium 8.8 (8.5-10.1) mg/dL Adrenal panel 10/17/17 Range/Units 05:18 Sodium 140 (136-145) meq/L Potassium 4.0 (3.5-5.1) meq/L Chloride 111 H (98-107) meq/L Carbon Dioxide 20.0 L (21.0-32.0) meq/L BUN 52 H (7-18) mg/dL Creatinine 1.30 H (0.50-1.00) mg/dL Calcium 8.8 (8.5-10.1) mg/dL Total Bilirubin 0.8 (0.2-1.0) mg/dL AST 59 H (15-37) U/L ALT 185 H (10-53) U/L Alkaline Phosphatase 304 H (45-117) U/L Total Protein 5.7 L (6.4-8.2) g/dL Albumin 2.2 L (3.4-5.0) g/dL All other labs normal. - Imaging CT scan - abdomen: image reviewed CT scan - pelvis: image reviewed US - abdomen: image reviewed Additional studies: Reviewed MRCP showing common duct stones Reviewed ERCP report <Reginald Eastman - Last Filed: 10/17/17 19:48> Assessment and Plan - Assessment (1) Gall stones Code(s): K80.20 - Calculus of gallbladder without cholecystitis without obstruction Status: Acute - Plan 82 year old female with choledocholithiasis -Plan for laparoscopic cholecystectomy tomorrow -Obtain consents -Clear liquids tonight; NPO after midnight -Hold anticoagulation -Discussed procedures including risks and benefits with patient as well as 2 daughters at the bedside. -All questions were answered -Thank you for this consult we will continue to follow Discussed Condition With: Dr. Raiza Roberson RN, Ms. Harris + 2 daughters at the bedside <Amparo Pantoja - Last Filed: 10/17/17 16:54> - Assessment (1) Gall stones Code(s): K80.20 - Calculus of gallbladder without cholecystitis without obstruction Status: Acute (2) Abnormal findings on imaging of biliary tract Code(s): R93.2 - Abnormal findings on diagnostic imaging of liver and biliary tract Status: Acute (3) History of renal cell carcinoma Code(s): Z85.528 - Personal history of other malignant neoplasm of kidney Status: Acute (4) Abnormal liver CT Code(s): R93.2 - Abnormal findings on diagnostic imaging of liver and biliary tract Status: Acute (5) Abnormal liver function Code(s): K76.89 - Other specified diseases of liver Status: Acute (6) Choledocholithiasis Code(s): K80.50 - Calculus of bile duct without cholangitis or cholecystitis without obstruction Status: Acute (7) History of nephrectomy, unilateral Code(s): Z90.5 - Acquired absence of kidney Status: Acute - Attending Attestation CONSULTATION NOTE FOR SURGICAL ATTENDING, DR. REGINALD EASTMAN I agree with above assessment and plan. Patient seen Discussed at bedside with the patient's daughter She appears to understand laparoscopic cholecystectomy possible open The exam, history, and the medical decision-making described in the above note were completed with the assistance of the mid-level provider. I reviewed and agree with the findings presented. I attest that I had a [id number] encounter with the patient on the same day, and personally performed and documented my assessment and findings in the medical record. The following services were provided during this hospital visit: Chart data review, vital sign assessments/reviewing monitor data Review of consultations notes if present. Medication orders/review and/or management Ordering and/or reviewing lab tests Ordering and/or interpreting/reviewing x-rays and/or diagnostic studies Care of the patient and discussion of the patient with the care team Documentation time To help prompt me to consider important information that might be impacting today's encounter and assessment, Information from prior notes written by myself or my colleagues may have been "brought forward/copy and pasted" into today's note. <Reginald Eastman - Last Filed: 10/17/17 19:48>
--- NOTE | 2017-10-17 18:17 | FL ---
EXAM DATE: 10/17/2017 2:10 PM EDT AGE/SEX: 82 years / Female INDICATIONS: Stones, obstruction. CLINICAL DATA: This is the patient's initial encounter. Patient reports that signs and symptoms have been present for 1 day and indicates a pain score of Nonresponsive. MEDICAL/SURGICAL HISTORY: Cholelithiasis. . COMPARISON: No prior exams available for comparison. FINDINGS: An ERCP was performed by the ordering physician. The images demonstrate contrast in the common bile duct which is dilated. There are some filling defects in the common bile duct. CONCLUSION: Dilated common bile duct with some common bile duct stones. Electronically signed by: Randy Berkowitz MD 10/17/2017 2:13 PM EDT
[2017-10-17] MEDS: HYDROmorphone PF Inj 2 MG/ML Vial IV.PUSH PRN (22:35)
[2017-10-18 06:37] LABS: Anion Gap 12 meq/L (5-15); Aspartate Aminotransferase 94 U/L (15-37); Blood Urea Nitrogen 41 mg/dL (7-18); Calcium 9.3 mg/dL (8.5-10.1); Carbon Dioxide 18.6 meq/L (21.0-32.0); Chloride 111 meq/L (98-107); Glomerular Filtration Rate 31 mL/min (>89); Glucose,Random 101 mg/dL (74-106); Sodium 142 meq/L (136-145)
[2017-10-18 06:40] LABS: Alanine Aminotransferase 152 U/L (10-53); Alkaline Phosphatase 571 U/L (45-117); Total Protein 5.4 g/dL (6.4-8.2)
--- NOTE | 2017-10-18 09:16 | ECG ---
Date Performed: 10/17/2017 Time Performed: 12:01:20 PTAGE: 82 years EKG: Sinus rhythm POSSIBLE LEFT VENTRICULAR HYPERTROPHY AND ST-T CHANGE ABNORMAL ECG NO PREVIOUS TRACING DOCTOR: Baldo Mckeon Interpretating Date/Time 10/18/2017 09:14:55
[2017-10-18] MEDS: Atenolol 50 MG Tablet PO SCH (09:42)
--- NOTE | 2017-10-18 10:05 | P.PN ---
Subjective Interval history: Follow-up for cholecystitis, choledocholithiasis. Patient is currently doing well. No chest pain, shortness of breath, fever or chills. She is scheduled for cholecystectomy today. Physical Exam Vital signs: Vital Signs 10/17/17 10:42 10/17/17 14:01 10/17/17 16:00 Temperature 98.1 F 97.9 F 98.2 F Pulse Rate 68 64 60 Respiratory Rate 16 16 14 Blood Pressure 155/70 H 137/60 148/67 H Pulse Oximetry 100 99 97 10/17/17 20:00 10/18/17 00:00 10/18/17 04:00 Temperature 98.6 F 99.0 F 97.5 F L Pulse Rate 86 88 52 L Respiratory Rate 18 16 14 Blood Pressure 182/76 H 155/70 H 147/67 H Pulse Oximetry 98 94 L 95 Intake & Output 10/17/17 10/18/17 10/18/17 18:59 06:59 18:59 Intake Total 900 / 900 Balance 900 / 900 Weight 82.3 kg Intake: IV 500 / 500 LR 1000 mL Inj 1,000 ML @ 125 500 / 500 mls/hr IV.CONT .Q8H [facility] Rx#: [id number] Anesthesia Amount 400 / 400 Other: Date of Last Bowel Movement 10/16/17 10/16/17 Narrative: GENERAL: Alert, oriented 3, NAD. SKIN: Warm and dry. HEAD: Normocephalic. EYES: No scleral icterus. No injection or drainage. NECK: Supple, trachea midline. No JVD or lymphadenopathy. CARDIOVASCULAR: Regular rate and rhythm without murmurs, gallops, or rubs. RESPIRATORY: Breath sounds equal bilaterally. No accessory muscle use. GASTROINTESTINAL: Abdomen soft, non-tender, nondistended. MUSCULOSKELETAL: No cyanosis, or edema. BACK: Nontender without obvious deformity. No CVA tenderness. Results - Labs CBC & Chem 7: 10/17/17 05:18 10/18/17 04:22 Laboratory Results - last 24 hr 10/18/17 04:22 Sodium 142 Potassium 4.0 Chloride 111 H Carbon Dioxide 18.6 L Anion Gap 12 BUN 41 H Creatinine 1.59 H Estimated GFR 31 L Random Glucose 101 Calcium 9.3 Total Bilirubin 2.6 H AST 94 H ALT 152 H Alkaline Phosphatase 571 H Total Protein 5.4 L Albumin 2.0 L - Imaging Impressions GI Procedure 10/17/17 00:00 CONCLUSION: Dilated common bile duct with some common bile duct stones. Assessment and Plan - Assessment (1) Abdominal pain Code(s): R10.9 - Unspecified abdominal pain Status: Acute Plan: Likely due to gallstones Follow-up clinically N.p.o. for now (2) Gall stones Code(s): K80.20 - Calculus of gallbladder without cholecystitis without obstruction Status: Acute Plan: Patient with history of abdominal pain since her 20s. Gallstones noted on ultrasound and CT but without inflammatory changes Continue IV hydration and dietary changes Patient will need cholecystectomy at some point (3) Hepatitis Code(s): K75.9 - Inflammatory liver disease, unspecified Status: Acute Plan: May be due to gallstones, follow-up MRCP to rule out ductal stone Hepatitis panel pending Continue IV hydration - Plan 82-year-old female who presented to the hospital with abdominal pain and was found to have elevated liver enzymes, gallbladder distention Choledocholithiasis Cholecystitis, acute -MRCP does indicate at least 3 stones obstructing the distal common bile duct -s/p ERCP --> ERCP with sphincterotomy/papillotomy, removal of calculus/ calculi. -Laparoscopic cholecystectomy today. -We will start ceftriaxone 1 g every 24 hours. No further need for antibiotics after surgery. Transaminitis -AST, ALT improved to 94, 152 respectively. Alk phos is still elevated to 571. Hypertension, hyperlipidemia, chronic -Blood pressure stable -Currently on atenolol 100 mg p.o. daily. -If further antihypertensives required, will consider amlodipine. Hypothyroidism, chronic -Continue replacement therapy History of kidney cancer status post nephrectomy -CT scan on 10/14/2017 indicates Multiple right-sided renal masses occluding probable hemorrhagic or proteinaceous cysts, complex cysts and indeterminate possibly solid masses. Contrast-enhanced CT abdomen or MRI abdomen with and without contrast suggested on a nonemergent outpatient basis. -Patient will need follow up with primary medical doctor upon discharge for further evaluation and management DVT prevention -Sequential compression devices
[2017-10-18] MEDS ORDERED: Lidocaine PF 1% Inj 5 ML Syringe INFILTRATN ONE (12:00)
[2017-10-18] MEDS ORDERED: Phenylephrine/NS 1000 MCG/10ML Syringe IV.PUSH ONE (12:00)
[2017-10-18] MEDS ORDERED: Neostigmine Inj 5 MG/5 ML Syringe IV.PUSH ONE (12:00)
[2017-10-18] MEDS ORDERED: Glycopyrrolate Inj 1 MG/5 ML Syringe IV.PUSH ONE (12:00)
--- NOTE | 2017-10-18 15:32 | P.OP ---
- Preoperative Diagnosis (1) Gall stones (2) Abnormal liver function (3) Choledocholithiasis (4) Abnormal findings on imaging of biliary tract (5) S/P ERCP (6) History of renal cell carcinoma - Postoperative Diagnosis (1) S/P laparoscopic cholecystectomy (2) Gall stones Date of procedure: 10/18/17 Procedure: PREOPERATIVE DIAGNOSIS: Cholelithiasis And/or Cholecystitis status post ERCP for choledocholithiasis POSTOP DIAGNOSIS: Cholelithiasis cholecystitis PROCEDURE: Laparoscopic Cholecystectomy ANESTHESIA: General SURGEON: Reginald Eastman M.D. ASST. refer to operating room records PROCEDURE DETAILS The patient was brought to the operating room and after proper identification. The patient was intubated after the induction of appropriate anesthesia. The patient remained under general anesthesia for the duration of the case. The patient was prepped with an antiseptic over the abdomen in the usual fashion and then he was draped in the usual sterile fashion. Following the draping, the pneumoperitoneum was established via Veress needle after saline load test had been performed via a infra-umbilical incision. After direct visualization of the peritoneum, the trocar was introduced and insufflation was begun. After appropriate insufflation a scope was inserted and the abdomen was visually inspected to be benign in gross visualization. Next, another 5 mm port was placed just below the xiphoid. This was then followed by the placement of 5 mm ports in between the 2 previously placed ports. All port sites were anesthetized with a Marcaine solution. The gallbladder was easily identified. There were a few adhesions. No intraabdominal fluid. Upon retraction of the gallbladder, the infundibulum was identified. After some blunt dissection, the cystic duct was identified and then skeletonized using the small grasper. After appropriate identification of the cystic duct, it was clipped 3 times with 2 clips staying, 1 clip going. It was then transected with scissors. This was performed without any complication. Next, a cystic artery was identified and 2 surgical clips on the proximal end and 1 surgical clip on the distal end were applied and this was transected using the laparoscopic scissors. Following this, the gallbladder was easily retracted back and electrocautery was used to dissect the gallbladder fossa. There was a well-established plane. After application of the clips, no further bleeding from this site was appreciated. Hemostasis was attained on the gallbladder fossa using a small amount of electrocautery. Following the removal of the gallbladder from the gallbladder fossa, it was placed in an endobag and subsequently removed from the supraumbilical port site. We double checked for hemostasis at the cystic artery. Also checked the cystic duct stump which showed no bile leakage. All ports were then removed The infra-umbilical fascia was closed directly with 0 Vicryl and then the dermis was closed at all 3 incision sites with a 4-0 absorbable monofilament in a running subcuticular manner. The fascia was closed in a simple interrupted manner. Steri-Strips and dressings were placed over the incision sites. The patient was awakened from anesthesia. The patient was returned to post-anesthesia care unit in a stable condition. DETAIL SPECIFIC TO THIS PROCEDURE: Gallbladder inflamed large stone in the neck of the gallbladder somewhat tortuous cystic duct Had a posterior branch of the cystic artery Reginald Eastman M.D. Anesthesia: [facility] Surgeon: Reginald Eastman MD Estimated blood loss (mL): 50 Pathology: other (Gallbladder and contents) Operation and Findings: Inflamed gallbladder with stones
[2017-10-18] MEDS ORDERED: fentaNYL Citrate Inj 100 MCG/2 ML Ampul ONE ×2 (16:31)
[2017-10-18] MEDS: HYDROmorphone PF Inj 2 MG/ML Vial IV.PUSH PRN (20:56)
[2017-10-19] MEDS: Atenolol 50 MG Tablet PO SCH (08:06)
--- NOTE | 2017-10-19 10:04 | P.PNGI ---
Subjective Interval history: Patient is alert, oriented and resting in bed No nausea no vomiting Current hemoglobin stable at 9.4 Family in room <GersonBlanquita - Last Filed: 10/19/17 09:58> Physical Exam Vital signs: Vital Signs 10/18/17 15:38 10/18/17 15:45 10/18/17 16:00 Temperature 97.4 F L Pulse Rate 72 65 59 L Respiratory Rate 21 22 24 Blood Pressure 154/67 H 147/71 H 147/98 H Pulse Oximetry 97 98 100 10/18/17 16:15 10/18/17 16:30 10/18/17 20:00 Temperature 97.2 F L Pulse Rate 55 L 58 L 53 L Respiratory Rate 20 24 16 Blood Pressure 147/93 H 155/67 H 140/61 Pulse Oximetry 97 98 98 10/19/17 00:00 10/19/17 04:00 10/19/17 08:00 Temperature 97.5 F L 97.3 F L 97.3 F L Pulse Rate 54 L 58 L 56 L Respiratory Rate 17 16 16 Blood Pressure 137/65 111/62 148/65 H Pulse Oximetry 97 97 75 L Intake & Output 10/18/17 10/19/17 10/19/17 18:59 06:59 18:59 Intake Total 3090 / 3090 Output Total 25 / 25 Balance 3065 / 3065 Intake: IV 100 / 100 Rocephin Inj 1,000 MG In NS Inj 100 / 100 100 ML @ 200 mls/hr IV.SIG ONCE ONE Rx#:[id number] Oral 90 / 90 Anesthesia Amount 2900 / 2900 Output: Urine 0 / 0 Estimated Blood Loss 25 / 25 Other: # Voids 1 Date of Last Bowel Movement 10/16/17 10/16/17 # Bowel Movements 1 - Constitutional no acute distress - Routine HEENT Exam Head: Present: normocephalic, atraumatic - Routine Abdominal Exam Present: soft (Round, mild soreness at surgical site ) - Routine Skin Exam Present: intact - Routine Neurological Exam Present: alert <Blanquita Nieto - Last Filed: 10/19/17 09:58> Vital signs: Vital Signs 10/18/17 16:00 10/18/17 16:15 10/18/17 16:30 Temperature Pulse Rate 59 L 55 L 58 L Respiratory Rate 24 20 24 Blood Pressure 147/98 H 147/93 H 155/67 H Pulse Oximetry 100 97 98 10/18/17 20:00 10/19/17 00:00 10/19/17 04:00 Temperature 97.2 F L 97.5 F L 97.3 F L Pulse Rate 53 L 54 L 58 L Respiratory Rate 16 17 16 Blood Pressure 140/61 137/65 111/62 Pulse Oximetry 98 97 97 10/19/17 08:00 10/19/17 12:00 Temperature 97.3 F L 97.3 F L Pulse Rate 56 L 50 L Respiratory Rate 16 16 Blood Pressure 148/65 H 168/81 H Pulse Oximetry 75 L 99 Intake & Output 10/18/17 10/19/17 10/19/17 18:59 06:59 18:59 Intake Total 3090 / 3090 1330 / 1330 Output Total Balance 3065 / 3065 1305 / 1305 Intake: IV 100 / 100 Rocephin Inj 1,000 MG In NS Inj 100 / 100 100 ML @ 200 mls/hr IV.SIG ONCE ONE Rx#:[id number] Oral 90 / 90 30 / 30 Anesthesia Amount 2900 / 2900 1300 / 1300 Output: Urine 0 / 0 0 / 0 Estimated Blood Loss Other: # Voids 1 1 Date of Last Bowel Movement 10/16/17 10/16/17 10/16/17 # Bowel Movements 1 1 <Nils Santana - Last Filed: 10/19/17 15:51> Results - Labs CBC & Chem 7: 10/17/17 05:18 10/18/17 04:22 <Blanquita Nieto - Last Filed: 10/19/17 09:58> - Labs CBC & Chem 7: 10/17/17 05:18 10/18/17 04:22 <Nils Santana - Last Filed: 10/19/17 15:51> Assessment and Plan - Plan Cholelithiasis, status post ERCP without any complications Cholecystectomy performed on 10/18/2017 patient is day 1 postop without any nausea or vomiting. States no BM 2 days but has just not started eating regular food again. Discussed bowel regimen and safety with any increased activity. Family members are in the room. Patient is stable from a GI perspective we will follow-up as outpatient as needed. Supportive care to patient and family. Labs stable at 9.4 Patient was seen per myself and Dr. Santana, note was written on his behalf <Blanquita Nieto - Last Filed: 10/19/17 09:58> - Plan Doing well post op. Now s/p ercp with stone extraction and cholecystectomy. GI will sign off. FU outpatient after dc as needed. thank you - Attending Attestation The exam, history, and the medical decision-making described in the above note were completed with the assistance of the mid-level provider. I reviewed and agree with the findings presented. I attest that I had a [id number] encounter with the patient on the same day, and personally performed and documented my assessment and findings in the medical record. <Nils Santana - Last Filed: 10/19/17 15:51>
--- NOTE | 2017-10-19 12:21 | P.PN ---
Subjective Interval history: Feels well; ate breakfast without issues. Wants to go home Physical Exam Vital signs: Vital Signs 10/18/17 15:38 10/18/17 15:45 10/18/17 16:00 Temperature 97.4 F L Pulse Rate 72 65 59 L Respiratory Rate 21 22 24 Blood Pressure 154/67 H 147/71 H 147/98 H Pulse Oximetry 97 98 100 10/18/17 16:15 10/18/17 16:30 10/18/17 20:00 Temperature 97.2 F L Pulse Rate 55 L 58 L 53 L Respiratory Rate 20 24 16 Blood Pressure 147/93 H 155/67 H 140/61 Pulse Oximetry 97 98 98 10/19/17 00:00 10/19/17 04:00 10/19/17 08:00 Temperature 97.5 F L 97.3 F L 97.3 F L Pulse Rate 54 L 58 L 56 L Respiratory Rate 17 16 16 Blood Pressure 137/65 111/62 148/65 H Pulse Oximetry 97 97 75 L Intake & Output 10/18/17 10/19/17 10/19/17 18:59 06:59 18:59 Intake Total 3090 / 3090 1330 / 1330 Output Total 25 / 25 25 / 25 Balance 3065 / 3065 1305 / 1305 Intake: IV 100 / 100 Rocephin Inj 1,000 MG In NS Inj 100 / 100 100 ML @ 200 mls/hr IV.SIG ONCE ONE Rx#:[id number] Oral 90 / 90 30 / 30 Anesthesia Amount 2900 / 2900 1300 / 1300 Output: Urine 0 / 0 0 / 0 Estimated Blood Loss 25 / 25 25 / 25 Other: # Voids 1 1 Date of Last Bowel Movement 10/16/17 10/16/17 10/16/17 # Bowel Movements 1 1 - Routine Abdominal Exam Present: wound (Minimal drainage on steristrips) Results - Labs CBC & Chem 7: 10/17/17 05:18 10/18/17 04:22 Assessment and Plan - Assessment (1) Gall stones Code(s): K80.20 - Calculus of gallbladder without cholecystitis without obstruction Status: Acute Plan: POD #1 Laparoscopic cholecystectomy Feeling well Discharge when ok with medical service; will recheck LFT's today to make sure everything is trending downward. (2) Abnormal findings on imaging of biliary tract Code(s): R93.2 - Abnormal findings on diagnostic imaging of liver and biliary tract Status: Acute (3) History of renal cell carcinoma Code(s): Z85.528 - Personal history of other malignant neoplasm of kidney Status: Acute (4) Abnormal liver CT Code(s): R93.2 - Abnormal findings on diagnostic imaging of liver and biliary tract Status: Acute (5) Abnormal liver function Code(s): K76.89 - Other specified diseases of liver Status: Acute (6) Choledocholithiasis Code(s): K80.50 - Calculus of bile duct without cholangitis or cholecystitis without obstruction Status: Acute (7) History of nephrectomy, unilateral Code(s): Z90.5 - Acquired absence of kidney Status: Acute - Plan Discussed Condition With: Patient Charge Nurse - Attending Attestation I attest that I had a [id number] encounter with the patient on the same day, and personally performed and documented my assessment and findings in the medical record. The following services were provided during this hospital visit: Chart data review, vital sign assessments/reviewing monitor data Review of consultation notes if present Medication orders/review and/or management Ordering and/or reviewing lab tests Ordering and/or interpreting/reviewing x-rays and/or diagnostic studies Care of the patient and discussion of the patient with the care team Documentation time To help prompt me to consider important information that might be impacting today's encounter and assessment, Information from prior notes written by myself or my colleagues may have been "brought forward/copy and pasted" into today's note.
--- NOTE | 2017-10-19 13:20 | P.DS ---
Date of admission: 10/17/17 07:13 Primary care physician: UNKNOWN Brief History from admission: Patient is an 82-year-old female with a history of renal cell carcinoma status post left nephrectomy and adrenalectomy who comes in complaining of 5 days of intermittent abdominal pain with 2 days of worsening of the pain, anorexia and nausea. She notes no fevers or chills no rahul vomiting. She has come to the emergency room in [place] for further evaluation is noted to have elevated LFTs and gallstones without inflammation on her CT abdomen pelvis as well as her ultrasound. Patient was admitted for further evaluation hydration. Her pain has resolved with bowel rest, and it was severe but now it is minimal. He is localized only to the mid epigastrium and is nonradiating. DS: Diagnosis - Discharge Diagnosis (1) Abdominal pain Status: Acute (2) Gall stones Status: Acute (3) Hepatitis Status: Acute DS: Summary Hospital Course: 82-year-old female who presented to the hospital with abdominal pain and was found to have elevated liver enzymes, gallbladder distention Choledocholithiasis Cholecystitis, acute -MRCP does indicate at least 3 stones obstructing the distal common bile duct -s/p ERCP --> ERCP with sphincterotomy/papillotomy, removal of calculus/ calculi. -s/p Laparoscopic cholecystectomy on 10/18/2017. Transaminitis -AST, ALT improved to 94, 152 respectively. Alk phos is still elevated to 571. -LFTs were ordered on the day of discharge. However, patient declined the lab because she was going home. -Would recommend repeating CMP within one week. Hypertension, hyperlipidemia, chronic -Blood pressure stable -Currently on atenolol 100 mg p.o. daily. -If further antihypertensives required, will consider amlodipine. Hypothyroidism, chronic -Continue replacement therapy History of kidney cancer status post nephrectomy -CT scan on 10/14/2017 indicates Multiple right-sided renal masses occluding probable hemorrhagic or proteinaceous cysts, complex cysts and indeterminate possibly solid masses. Contrast-enhanced CT abdomen or MRI abdomen with and without contrast suggested on a nonemergent outpatient basis. -Patient will need follow up with primary medical doctor upon discharge for further evaluation and management - Time Spent with Patient Total time spent providing and/or coordinating discharge services: Less than 30 minutes - Quality: VTE Deep Vein Thrombosis/Pulmonary Embolism Present on Admission: No Exam Vital signs: Vital Signs 10/18/17 15:38 10/18/17 15:45 10/18/17 16:00 Temperature 97.4 F L Pulse Rate 72 65 59 L Respiratory Rate 21 22 24 Blood Pressure 154/67 H 147/71 H 147/98 H Pulse Oximetry 97 98 100 10/18/17 16:15 10/18/17 16:30 10/18/17 20:00 Temperature 97.2 F L Pulse Rate 55 L 58 L 53 L Respiratory Rate 20 24 16 Blood Pressure 147/93 H 155/67 H 140/61 Pulse Oximetry 97 98 98 10/19/17 00:00 10/19/17 04:00 10/19/17 08:00 Temperature 97.5 F L 97.3 F L 97.3 F L Pulse Rate 54 L 58 L 56 L Respiratory Rate 17 16 16 Blood Pressure 137/65 111/62 148/65 H Pulse Oximetry 97 97 75 L 10/19/17 12:00 Temperature 97.3 F L Pulse Rate 50 L Respiratory Rate 16 Blood Pressure 168/81 H Pulse Oximetry 99 Intake & Output 10/18/17 10/19/17 10/19/17 18:59 06:59 18:59 Intake Total 3090 / 3090 1330 / 1330 Output Total 25 / Balance 3065 / 3065 1305 / 1305 Intake: IV 100 / 100 Rocephin Inj 1,000 MG In NS Inj 100 / 100 100 ML @ 200 mls/hr IV.SIG ONCE ONE Rx#:[id number] Oral 90 / 90 30 / 30 Anesthesia Amount 2900 / 2900 1300 / 1300 Output: Urine 0 / 0 0 / 0 Estimated Blood Loss 25 / Other: # Voids 1 1 Date of Last Bowel Movement 10/16/17 10/16/17 10/16/17 # Bowel Movements 1 1 Narrative: GENERAL: Alert, NAD. SKIN: Warm and dry. HEAD: Normocephalic. EYES: No scleral icterus. No injection or drainage. NECK: Supple, trachea midline. No JVD or lymphadenopathy. CARDIOVASCULAR: Regular rate and rhythm without murmurs, gallops, or rubs. RESPIRATORY: Breath sounds equal bilaterally. No accessory muscle use. GASTROINTESTINAL: Abdomen soft, non-tender, nondistended. MUSCULOSKELETAL: No cyanosis, or edema. BACK: Nontender without obvious deformity. No CVA tenderness. Results Procedures completed during hospitalization: Laparoscopic Cholecystectomy Pending studies at discharge: Pending at discharge 10/18/17 Surgical [PTH] Routine - Impressions ITS Impressions Cholangiopancreatography MRI 10/16/17 00:00 CONCLUSION: 1. Positive for choledocholithiasis with at least 3 gallstones in the distal common bile duct measuring between 5 and 8 mm in diameter. Common bile duct measures up to about 9 mm in diameter. 2. Calcified gallstones in the gallbladder. GI Procedure 10/17/17 00:00 CONCLUSION: Dilated common bile duct with some common bile duct stones. Discharge Plan - Discharge Disposition Patient Disposition: Discharge Home - Discharge Condition Condition: Good - Discharge Order Discharge Orders: Discharge Order (Routine); Ordered 10/19/17 Ordered By: Sunshine Keller General Surgery Clear for Discharge (Routine); Ordered 10/19/17 Ordered By: Truong Ren - Discharge Details Anticipated Discharge Date: 10/19/17 - Physicians Team Primary Care Provider: UNKNOWN, Attending Provider: Sunshine Keller Other Providers: Farzad Garcia MD ; Reginald Eastman MD ; Surgeons,[facility] - Rxs /Orders / Referrals /Forms Prescriptions: Continue atenolol 100 mg Tablet 100 mg PO DAILY levothyroxine 25 mcg Tablet 25 mcg PO DAILY simvastatin [Zocor] 40 mg Tablet 40 mg PO QPM Referrals: Reginald Eastman MD [Physician] - See Instructions (Follow up within 7-10 days.) UNKNOWN, [Primary Care Provider] - See Instructions - Discharge Instructions Patient Printed Instructions: Laparoscopic Cholecystectomy (DC), ERCP ( Endoscopic Retrograde Cholangiopancreatography) (DC) - Post Discharge Care Plan Care Plan Goals: Your Health Problems: Goals to Promote Your Health: * To prevent worsening of your condition * To maintain your health at the optimal level Directions to Meet Your Goals: * Take your medications as prescribed * Follow your dietary instruction * Follow activity as directed * Keep your appointments as scheduled * Take your immunizations and boosters as scheduled * If your symptoms worsen call your PCP * If no PCP go to Urgent Care or Emergency Room Smoking is dangerous to your health. Avoid second hand smoke. You may reach the 24-hour crisis hotline for domestic abuse at .
[2017-10-22 17:51] VITALS: BP 168/81; PULSE 50; RESP 16; TEMP 97.3; O2SAT 99
== END 2017-10-19 12:54 | disposition home or self-care (01) ==
LOC: PHEDDLT 19:23 → PHEDA 19:23 → N06 10-17 10:35 → HSDI 10-17 11:38 → N06 10-17 15:22
PROVIDERS: ADMIT Hospitalist; ATTEND Hospitalist